=== PATIENT | female | born 1990 | race Caucasian/White ===

== ENCOUNTER 2016-04-15 22:06 | Outpatient (CLI) | payer OTHER ==
[~2016-04-15] VITALS: Ht 152.4 cm; Wt 84.4 kg
[~2016-04-15 22:06] MED LIST: PREN1TAB49
[2016-04-15 22:18] VITALS: BP 129/69; PULSE 101; RESP 18; Ht 152.4 cm; Wt 84.4 kg
[2016-04-15] MEDS ORDERED: FERR256T PO (22:21)
[2016-04-15] MEDS ORDERED: CALC600T5 PO (22:21)
--- NOTE | 2016-04-15 23:10 | PN ---
Date/Time of Note Date/Time of Note DATE: 04/15/16 TIME: 23:08 OB Subjective Subjective Subjective 25 yo P1 @ 39 wks c/o ctx; no vb, no lof, good Fm OB Objective Objective Objective Nml VS Abdomen- gravid, n/t SVE- 1-2/70/-2 FHT- Cat I [place]- irreg ctx Abdomen: WNL Cervical Dilatation: 1cm Effacement: 75% Station: -2 Membranes: Intact Heart Rate: 150's Accelerations: Accelerations Present Decelerations: No Decelerations Varibility: Moderate Intensity: Mild AISLINN FARLEY MD Apr 15, 2016 23:10
--- NOTE | 2016-04-16 00:08 | TRIAGE ---
OB Triage Datetime Report Generated by CPN: 04/16/2016 00:08 Datetime: 04/15/2016 22:40 Vaginal Exam Dilatation (cms): 1.5 Effacement (%): 70 Station: -2 Exam By: DGS RN Vaginal Bleeding: None Cervix, Consistency: Soft Cervix, Position: Posterior Datetime: 04/15/2016 22:35 Labor Evaluation Monitor Mode: Palpation Quality: Mild Datetime: 04/15/2016 22:32 Stage of : OB Triage Datetime: 04/15/2016 22:15 EGA: 38.6 Datetime: 04/15/2016 22:14 Time of Arrival: 04/15/2016 22:00 Arrived By: Ambulatory Arrived From: Home Chief Complaint: LOW ABDOMEN, VAGINAL _ BACK PRESSURE VOMITTED X1 Movement: Decreased Contractions: Occasional Contractions: FEELS ABD PRESSURE PT UNSURE IF UC'S Rupture of Membranes: Denies Vaginal Bleeding: None Vaginal Discharge: Denies Recent Sexual Intercouse: Denies Abdominal Trauma: Not Applicable Patient Complaints: Other Time Provider Notified: 04/15/2016 22:54 Provider Notified: MARTINE Initial Plan: CONTINUOUS EFM Datetime: 04/15/2016 22:13 Assessment Type: Triage Maternal Assessment Level of Consciousness: Fully Conscious DTR's/Clonus: DTRs 2+; No Clonus Headache: Denies Blurred Vision: No Respiratory Effort: Unlabored; Regular Rhythm; Equal Expansion Breath Sounds, Left: Clear and Equal Breath Sounds, Right: Clear and Equal Nausea/Vomiting: Denies RUQ Epigastric Pain: Denies Lower Extremities Edema: None Degree: None Upper Extremities Edema: None Degree: None Facial Edema: None Temperature Route: Oral Fall Risk Assessment History of Falling: (0) No Secondary Diagnosis: (0) No Ambulatory Aid: (0) Bedrest/Nurse Assist IV Therapy: (0) No Gait: (0) Normal/Bedrest/Immobile Mental Status: (0) Oriented to Own Ability Fall Score: 0 Fall Risk Score Definition: No Risk: No action required Pain Assessment Pain Scale: 8 Pain Presence: Constant Pain Type: Pressure Pain Location: Abdomen; Back; Perineum Pain Goal: 3 Datetime: 04/15/2016 22:09 Stage of : OB Triage Assessment Type: Triage
== END 2016-04-15 23:35 | disposition home or self-care (01) ==
LOC: OBT 22:06 → L-D 22:08 → OBT 23:35
PROVIDERS: ATTEND Obstetrics & Gynecology
DX: O62.9 Abnormality of forces of labor, unspecified (principal); Z3A.39 39 weeks gestation of pregnancy
CPT/HCPCS: G0463

== ENCOUNTER 2016-04-16 03:00 | Inpatient (IN) | payer OTHER ==
[~2016-04-16] VITALS: Ht 152.4 cm; Wt 84.4 kg
[~2016-04-16 03:00] MED LIST changes: +CALC600T5 PO; +FERR256T PO
[2016-04-16 03:14] VITALS: Ht 152.4 cm; Wt 84.4 kg
[2016-04-16] MEDS ORDERED: MISOPROSTOL 200 MCG TAB PR PRN (05:00)
[2016-04-16] MEDS ORDERED: LACTATED RINGER'S 1,000 ML IV PRN (05:00)
[2016-04-16] MEDS ORDERED: LACTATED RINGER'S 1,000 ML IV SCH (05:00)
[2016-04-16] MEDS ORDERED: CARBOPROST 250 MCG INJ IM PRN (05:00)
[2016-04-16] MEDS ORDERED: METHYLERGONOVINE 0.2 MG INJ IM PRN (05:00)
[2016-04-16] MEDS ORDERED: AMPICILLIN 2 GM/NS (PMX) 100 ML IV ONE (05:00)
[2016-04-16] MEDS ORDERED: LIDOCAINE 1% (MPF) 30 ML INJ INJ PRN (05:00)
[2016-04-16] MEDS ORDERED: OXYTOCIN 30 UNITS/LR 500 ML IV SCH ×3 (05:00→13:58)
[2016-04-16] MEDS ORDERED: OXYTOCIN 30 UNITS/LR 500 ML IV PRN (05:00)
--- NOTE | 2016-04-16 05:31 | TRIAGE ---
OB Triage Datetime Report Generated by CPN: 04/16/2016 05:30 Datetime: 04/16/2016 05:06 Frequency: 2-6 Monitor Mode: External Duration (sec)2399: 60-90 Quality: Mild Pattern: Normal: <= 5 Contractions in 10 Minutes Resting Tone [place]: Relaxed FHR Baseline Rate: 140 Monitor Mode: External US Variability: Minimal - Undetectable to <=5 bpm Accelerations: 15X15 Decelerations: None Category: Category II Pain Relief Measures: Comfort Measures Datetime: 04/16/2016 05:04 Stage of : OB Triage Datetime: 04/16/2016 04:51 Dilatation (cms): 3.5 Effacement (%): 80 Station: -2 Exam By: DGS RN Membrane Status: Bulging Vaginal Bleeding: Normal Show Cervix, Consistency: Soft Cervix, Position: Posterior Datetime: 04/16/2016 04:37 Monitor Mode: Palpation Quality: Mild Resting Tone [place]: Relaxed Contraction Comments: TOCO APPLIED Monitor Mode: External US Comments: U/S APPLIED Datetime: 04/16/2016 04:04 Comments: off monitor Datetime: 04/16/2016 04:03 Frequency: IRREG Monitor Mode: External Duration (sec)2399: 50-140 Quality: Mild Pattern: Normal: <= 5 Contractions in 10 Minutes Resting Tone [place]: Relaxed FHR Baseline Rate: 150 Monitor Mode: External US Variability: Moderate 6-25 bpm Accelerations: 15X15 Decelerations: None Category: Category I Comments: PERIODS OF MINIMAL VARIABILITY Pain Relief Measures: Comfort Measures Datetime: 04/16/2016 03:41 Monitor Mode: Palpation Quality: Mild Resting Tone [place]: Relaxed Interventions: Oxygen Applied Monitor Mode: External US Datetime: 04/16/2016 03:35 Dilatation (cms): 2.5 Effacement (%): 70 Station: -2 Exam By: DGS RN Vaginal Bleeding: Normal Show Cervix, Consistency: Moderate Cervix, Position: Posterior Datetime: 04/16/2016 03:08 Stage of : OB Triage Assessment Type: Triage Level of Consciousness: Fully Conscious DTR's/Clonus: DTRs 2+; No Clonus Headache: Denies Blurred Vision: No Respiratory Effort: Unlabored; Regular Rhythm; Equal Expansion Breath Sounds, Left: Clear and Equal Breath Sounds, Right: Clear and Equal Nausea/Vomiting: Denies RUQ Epigastric Pain: Denies Lower Extremities Edema: None Degree: None Upper Extremities Edema: None Degree: None Facial Edema: None Temperature Route: Oral History of Falling: (0) No Secondary Diagnosis: (0) No Ambulatory Aid: (0) Bedrest/Nurse Assist IV Therapy: (0) No Gait: (0) Normal/Bedrest/Immobile Mental Status: (0) Oriented to Own Ability Fall Score: 0 Fall Risk Score Definition: No Risk: No action required Pain Scale: 10 Pain Presence: Intermittent Pain Type: Cramping Pain Location: Abdomen Pain Goal: 3 Pain Relief Measures: Comfort Measures Datetime: 04/16/2016 03:05 Stage of : OB Triage Datetime: 04/16/2016 03:03 Stage of : OB Triage Datetime: 04/16/2016 03:02 Time of Arrival: 04/16/2016 03:02 EGA: 39.0 Arrived By: Wheelchair Arrived From: Home Chief Complaint: UC'S SINCE 0000 Movement: Present Contractions: Regular Time Contractions Began: 04/16/2016 00:00 Contractions: Q6-8 MINS Rupture of Membranes: Denies Vaginal Bleeding: None Vaginal Discharge: Denies Recent Sexual Intercouse: Denies Abdominal Trauma: Not Applicable Patient Complaints: Contractions Time Provider Notified: 04/16/2016 03:50 Provider Notified: MARTINE Initial Plan: CONTINUOUS EFM Datetime: 04/15/2016 23:05 Stage of : OB Triage Frequency: OCC Monitor Mode: External Duration (sec)2399: 60-120 Quality: Mild Pattern: Normal: <= 5 Contractions in 10 Minutes Resting Tone [place]: Relaxed FHR Baseline Rate: 150 Monitor Mode: External US Variability: Moderate 6-25 bpm Accelerations: 15X15 Decelerations: None Category: Category I
[2016-04-16] MEDS ORDERED: BUTORPHANOL 2 MG INJ ONE (05:43)
[2016-04-16 05:55] LABS: ADD SCAN DIFF NO
[2016-04-16] MEDS ORDERED: BUTORPHANOL 2 MG INJ IV PRN (06:00)
[2016-04-16 06:03] LABS: BASOPHILS % 0.3 % (0.0-2.0); EOSINOPHILS # 0.1 10^3/ul (0.0-0.5); EOSINOPHILS % 0.9 % (0.0-7.0); HEMATOCRIT 33.8 % (37.0-47.0); HEMOGLOBIN 10.9 g/dl (12.0-16.0); LYMPHOCYTES # 2.8 10^3/ul (0.8-2.9); LYMPHOCYTES % 23.6 % (15.0-51.0); MEAN CORPUSCULAR HEMOGLOBIN 26.7 pg (29.0-33.0); MEAN CORPUSCULAR HGB CONC 32.2 g/dl (32.0-37.0); MEAN CORPUSCULAR VOLUME 82.8 fl (82.0-101.0); MEAN PLATELET VOLUME 11.7 fl (7.4-10.4); MONOCYTE # 0.9 10^3/ul (0.3-0.9); NEUTROPHIL # 7.8 10^3/ul (1.6-7.5); NEUTROPHILS % 66.4 % (39.0-77.0); PLATELET COUNT 208 10^3/UL (140-415); RED BLOOD COUNT 4.08 10^6/ul (4.20-5.40); RED CELL DISTRIBUTION WIDTH 15.2 % (11.5-14.5); WHITE BLOOD COUNT 11.8 10^3/ul (4.8-10.8)
[2016-04-16 06:12] LABS: INR 0.92; PROTIME 12.4 Sec (12.2-14.2)
[2016-04-16 06:13] LABS: PARTIAL THROMBOPLASTIN TIME 27.4 Sec (25.0-35.0)
[2016-04-16 06:23] VITALS: BP 135/78; PULSE 100; RESP 20
[2016-04-16] MEDS ORDERED: FENTAnyl 2MCG/ML-ROPIV 0.2% 100 ML ONE (07:08)
[2016-04-16] MEDS ORDERED: NALOXONE (0.4 MG/ML) INJ IV PRN (08:00)
[2016-04-16] MEDS ORDERED: ONDANSETRON 4 MG INJ IV PRN ×3 (08:00→19:30)
[2016-04-16] MEDS ORDERED: DIPHENHYDRAMINE 50 MG INJ IV PRN (08:00)
[2016-04-16] MEDS ORDERED: FENTAnyl 2MCG/ML-ROPIV 0.2% 100 ML BAG EPI SCH (08:00)
[2016-04-16] MEDS ORDERED: AMPICILLIN 1 GM/NS (PMX) 50 ML IV SCH (09:00)
[2016-04-16 13:54] VITALS: BP 117/66; PULSE 105; RESP 20
[2016-04-16] MEDS ORDERED: DIBUCAINE 1% 30 GM OINT PR PRN ×2 (14:00→19:30)
[2016-04-16] MEDS ORDERED: WITCH HAZEL/GLYCERIN PAD PR PRN ×2 (14:00→19:30)
[2016-04-16] MEDS ORDERED: BENZOCAINE 20% 56 ML SPRAY TOP PRN ×2 (14:00→19:30)
[2016-04-16] MEDS ORDERED: ACETAMINOPHEN 325 MG TAB PO PRN ×2 (14:00→19:30)
[2016-04-16] MEDS ORDERED: OXYCODONE/ASPIRIN (4.88/325) TAB PO PRN ×4 (14:00→19:30)
[2016-04-16] MEDS ORDERED: IBUPROFEN 600 MG TAB PO SCH (14:00)
[2016-04-16] MEDS ORDERED: ACETAMINOPHEN/CODEINE #3 TAB PO PRN ×4 (14:00→19:30)
[2016-04-16] MEDS ORDERED: LANOLIN 7 GM TUBE TOP PRN ×2 (14:00→19:30)
[2016-04-16 16:25] VITALS: BP 117/72; PULSE 97; RESP 19
--- NOTE | 2016-04-16 17:01 | LDN ---
Date/Time of Note Date/Time of Note DATE: 04/16/16 TIME: 16:58 Delivery Summary Normal spontaneous vaginal delivery of a baby girl from BOBBI position shoulders delivered without any difficulties the rest of the baby's body followed/ placenta spontaneous expulsion inspected complete no perineal laceration estimated blood loss 200-250 cc Placenta Delivered: Spontaneously Meconium: none Perineum intact?: Yes Anesthesia type: Epidural Sponge & Needle done & correct: Yes All needle counts correct: Yes Any foreign bodies felt in the: No Problems: Delivery Information Sex Infant Sex: female Apgars 1 Minute: 9 5 Minute: 9 Suctioning Delee suction performed: No Umbilical Cord Umbilical cord with: 3 Vessels Cord Blood was obtained: Yes SANG BOYER MD Apr 16, 2016 17:01
--- NOTE | 2016-04-16 17:07 | HP ---
Date/Time of Note Date/Time of Note DATE: 04/16/16 TIME: 17:02 OB - History Hx of Present Free Text/Dictation 25 years old female 2. Para 1 EDC April 23 admitted to [facility] in active labor admitting pelvic examination cervix 5 cm dilated 100% effaced vertex is -1 station contraction every 3-4 minutes heart rate category 1. Chief Complaint: Labor contractions Estimated Due Date: Apr 23, 2016 : 2 Para: 1 Care: Good Care Ultrasounds: Normal mid trimester US Obstetrical Complications: None Medical Complications: None Past Family/Social History * Past Medical, Surgical, Family and Obstetric Histories reviewed from chart. Rubella: immune RPR/VDRL: Negative GBS Status: Negative HBsAG: Negative OB Admission Exam Vital Signs Vital Signs Vital Signs Date Time Temp Pulse Resp B/P Pulse Ox O2 Delivery O2 Flow Rate FiO2 04/16/16 16:25 98.4 97 19 117/72 Room Air 04/16/16 06:23 98 Physical Exam HEENT: WNL Heart: Rhythm Normal Lungs: Clear, Equal Abdomen: WNL Extremities: Normal Cervical Dilatation: 5cm Effacement: 100% Station: -2 Membranes: Intact Heart Rate: 120's Accelerations: Accelerations Present Decelerations: No Decelerations Varibility: Moderate Contractions on Admission: < 5 Minutes Apart Intensity: Firm Last 72 hours Lab Results CBC & BMP 04/16/16 05:20 SANG BOYER MD Apr 16, 2016 17:07
[2016-04-16] MEDS: OXYTOCIN 30 UNITS/LR 500 ML IV SCH ×2 (19:23→23:23)
[2016-04-16 20:00] VITALS: BP 118/68; PULSE 100; RESP 20
[2016-04-16] MEDS ORDERED: SENNA/DOCUSATE NA (8.6MG/50MG) TAB PO SCH (21:00)
[2016-04-16] MEDS: SENNA/DOCUSATE NA (8.6MG/50MG) TAB PO SCH (21:03)
[2016-04-16 23:45] VITALS: BP 110/56; PULSE 97; RESP 20
[2016-04-16] MEDS: IBUPROFEN 600 MG TAB PO SCH (23:46)
[2016-04-17 03:45] VITALS: BP 103/69; PULSE 96; RESP 20
[2016-04-17] MEDS: IBUPROFEN 600 MG TAB PO SCH ×3 (06:05→17:05)
[2016-04-17 07:30] LABS: ADD SCAN DIFF NO
[2016-04-17 07:35] LABS: BASOPHILS % 0.2 % (0.0-2.0); EOSINOPHILS # 0.2 10^3/ul (0.0-0.5); EOSINOPHILS % 1.5 % (0.0-7.0); HEMATOCRIT 26.9 % (37.0-47.0); HEMOGLOBIN 8.5 g/dl (12.0-16.0); LYMPHOCYTES # 2.6 10^3/ul (0.8-2.9); LYMPHOCYTES % 20.9 % (15.0-51.0); MEAN CORPUSCULAR HEMOGLOBIN 26.6 pg (29.0-33.0); MEAN CORPUSCULAR HGB CONC 31.6 g/dl (32.0-37.0); MEAN CORPUSCULAR VOLUME 84.3 fl (82.0-101.0); MEAN PLATELET VOLUME 11.2 fl (7.4-10.4); MONOCYTE # 0.8 10^3/ul (0.3-0.9); MONOCYTES % 6.5 % (0.0-11.0); NEUTROPHIL # 8.6 10^3/ul (1.6-7.5); NEUTROPHILS % 69.9 % (39.0-77.0); PLATELET COUNT 160 10^3/UL (140-415); RED BLOOD COUNT 3.19 10^6/ul (4.20-5.40); RED CELL DISTRIBUTION WIDTH 15.5 % (11.5-14.5); WHITE BLOOD COUNT 12.3 10^3/ul (4.8-10.8)
[2016-04-17 08:30] VITALS: BP 98/52; PULSE 94; RESP 18
--- NOTE | 2016-04-17 11:00 | PN ---
Date/Time of Note Date/Time of Note DATE: 04/17/16 TIME: 10:59 OB Subjective Subjective Subjective Post normal vaginal delivery day 1 VSs stable, afebrile, abdomen soft, uterus firm, lochia normal, extremity normal , ambulation recommended Laboratory Tests Test 04/17/16 06:40 Basophils # 0.010^3/ul Basophils % 0.2% Eosinophils # 0.210^3/ul Eosinophils % 1.5% Hematocrit 26.9% Hemoglobin 8.5g/dl Lymphocytes # 2.610^3/ul Lymphocytes % 20.9% Mean Corpuscular Hemoglobin 26.6pg Mean Corpuscular Hemoglobin Concent 31.6g/dl Mean Corpuscular Volume 84.3fl Mean Platelet Volume 11.2fl Monocytes # 0.810^3/ul Monocytes % 6.5% Neutrophils # 8.610^3/ul Neutrophils % 69.9% Nucleated Red Blood Cells # 0.010^3/ul Nucleated Red Blood Cells % 0.0/100WBC Platelet Count 93349^3/UL Red Blood Count 3.1910^6/ul Red Cell Distribution Width 15.5% White Blood Count 12.310^3/ul Current Medications Medications (Trade) Dose Ordered Sig/Julio Route PRN Reason Start Time Stop Time Status Last Admin Dose Admin Lactated Ringer's (Lr) 1,000 ml @ 125 mls/hr Q8H IV 04/16/16 05:00 04/16/16 14:02 DC 04/16/16 05:45 Lidocaine 30 ml 30 ml ONCE PRN INJ EPISIOTOMY/TEARING 04/16/16 05:00 04/16/16 14:02 DC Oxytocin/Lactated Ringer's 500 ml @ 125 mls/hr ONCE -MAY REPEAT X1 IV 04/16/16 05:00 04/16/16 14:02 DC 04/16/16 11:39 Oxytocin/Lactated Ringer's 500 ml @ 125 mls/hr ONCE IV 04/16/16 05:00 04/16/16 14:02 DC 04/16/16 13:05 Lactated Ringer's 1,000 ml @ 2,000 mls/hr Q30M PRN IV PRE-EPIDURAL BOLUS 04/16/16 05:00 04/16/16 14:02 DC 04/16/16 08:09 Oxytocin/Lactated Ringer's 500 ml @ 0 mls/hr ONCE PRN IV For Hemorrhage Management 04/16/16 05:00 04/16/16 14:02 DC Methylergonovine Maleate (Methergine) 0.2 mg ONCE PRN IM VAGINAL BLEEDING 04/16/16 05:00 04/16/16 14:02 DC 04/16/16 13:25 Carboprost Tromethamine (Hemabate) 250 mcg ONCE PRN IM VAGINAL BLEEDING 04/16/16 05:00 04/16/16 14:02 DC Misoprostol 1000 mcg 1,000 mcg ONCE PRN WA VAGINAL BLEEDING 04/16/16 05:00 04/16/16 14:02 DC Ampicillin 100 ml @ 100 mls/hr ONCE ONCE IV 04/16/16 05:00 04/16/16 05:35 DC Ampicillin (Ampicillin 1 Gm/ NS (Pmx)) 50 ml @ 100 mls/hr Q4H IV 04/16/16 09:00 04/16/16 09:00 DC Butorphanol Tartrate (Stadol) 2 mg Q2H PRN IV PAIN 04/16/16 06:00 04/16/16 14:02 DC 04/16/16 05:48 Butorphanol Tartrate 2 mg 2 mg STK-MED ONCE .ROUTE 04/16/16 05:43 04/16/16 05:44 DC Fentanyl/ Ropivacaine 100 ml @ ud STK-MED ONCE .ROUTE 04/16/16 07:08 04/16/16 07:09 DC Naloxone HCl (Narcan) 0.1 mg Q2M PRN IV FOR RESP RATE 8 OR LESS 04/16/16 08:00 04/16/16 14:02 DC Diphenhydramine HCl (Benadryl) 25 mg Q6H PRN IV ITCHING 04/16/16 08:00 04/16/16 14:02 DC Ondansetron HCl (Zofran Inj) 4 mg Q6H PRN IV NAUSEA AND/OR VOMITING 04/16/16 08:00 04/16/16 14:02 DC Fentanyl/ Ropivacaine 100 ml 100 ml EPIDURAL INFUSION EPI 04/16/16 08:00 04/16/16 14:02 DC Oxytocin/Lactated Ringer's 500 ml @ 125 mls/hr Q4H IV 04/16/16 13:58 04/16/16 19:27 DC 04/16/16 17:40 Ibuprofen (Motrin) 600 mg Q6 PO 04/16/16 14:00 04/16/16 19:27 DC 04/16/16 17:40 Acetaminophen (Tylenol Tab) 650 mg Q4H PRN PO PAIN LEVEL 1-5 04/16/16 14:00 04/16/16 19:27 DC Acetaminophen/ Codeine Phosphate (Tylenol No.3) 1 tab Q4H PRN PO PAIN LEVEL 1-5 04/16/16 14:00 04/16/16 19:27 DC Acetaminophen/ Codeine Phosphate (Tylenol No.3) 2 tab Q4H PRN PO PAIN LEVEL 6-10 04/16/16 14:00 04/16/16 19:27 DC Oxycodone/Aspirin (Percodan) 1 tab Q3H PRN PO PAIN LEVEL 1-5 04/16/16 14:00 04/16/16 19:27 DC Oxycodone/Aspirin (Percodan) 2 tab Q3H PRN PO PAIN LEVEL 6-10 04/16/16 14:00 04/16/16 19:27 DC Ondansetron HCl (Zofran Inj) 4 mg Q6H PRN IV NAUSEA AND/OR VOMITING 04/16/16 14:00 04/16/16 19:27 DC Senna/Docusate Sodium (Senokot-S) 1 tab BID PO 04/16/16 21:00 04/16/16 21:00 DC Witch Nanci/ Glycerin (Tucks Pads) 1 pad BEDSIDE MEDICATION PRN WA HEMORRHOID/EPISIOTMY PAIN 04/16/16 14:00 04/16/16 19:27 DC Benzocaine (Dermoplast [place]) 1 spray BEDSIDE MEDICATION PRN TOP HEMORRHOID/EPISIOTMY PAIN 04/16/16 14:00 04/16/16 19:27 DC Dibucaine (Nupercainal) 1 applic BEDSIDE MEDICATION PRN WA HEMORRHOID/EPISIOTMY PAIN 04/16/16 14:00 04/16/16 19:27 DC Lanolin (Rqy-Y-Oluwtm) 1 applic BEDSIDE MEDICATION PRN TOP BEDSIDE FOR [place] TO NIPPLES 04/16/16 14:00 04/16/16 19:27 DC Measles/Mumps/ Rubella Vaccine Live 0.5 ml 0.5 ml ONCE ONCE SC* 04/18/16 09:00 04/18/16 09:00 DC Oxytocin/Lactated Ringer's 500 ml @ 125 mls/hr Q4H IV 04/16/16 19:23 04/17/16 03:22 DC Ibuprofen (Motrin) 600 mg Q6 PO 04/17/16 00:00 04/17/16 06:05 Acetaminophen (Tylenol Tab) 650 mg Q4H PRN PO PAIN LEVEL 1-5 04/16/16 19:30 Acetaminophen/ Codeine Phosphate (Tylenol No.3) 1 tab Q4H PRN PO PAIN LEVEL 1-5 04/16/16 19:30 Acetaminophen/ Codeine Phosphate (Tylenol No.3) 2 tab Q4H PRN PO PAIN LEVEL 6-10 04/16/16 19:30 Oxycodone/Aspirin (Percodan) 1 tab Q3H PRN PO PAIN LEVEL 1-5 04/16/16 19:30 Oxycodone/Aspirin (Percodan) 2 tab Q3H PRN PO PAIN LEVEL 6-10 04/16/16 19:30 Ondansetron HCl (Zofran Inj) 4 mg Q6H PRN IV NAUSEA AND/OR VOMITING 04/16/16 19:30 Senna/Docusate Sodium (Senokot-S) 1 tab BID PO 04/16/16 21:00 04/16/16 21:03 Witch Nanci/ Glycerin (Tucks Pads) 1 pad BEDSIDE MEDICATION PRN [place] HEMORRHOID/EPISIOTMY PAIN 04/16/16 19:30 Benzocaine (Dermoplast [place]) 1 spray BEDSIDE MEDICATION PRN TOP HEMORRHOID/EPISIOTMY PAIN 04/16/16 19:30 Dibucaine (Nupercainal) 1 applic BEDSIDE MEDICATION PRN WA HEMORRHOID/EPISIOTMY PAIN 04/16/16 19:30 Lanolin (Pbr-T-Emrrgf) 1 applic BEDSIDE MEDICATION PRN TOP BEDSIDE FOR [place] TO NIPPLES 04/16/16 19:30 Measles/Mumps/ Rubella Vaccine Live (Mmr Ii Vaccine) 0.5 ml ONCE ONCE SC* 04/18/16 09:00 04/18/16 09:01 Influenza Virus Vaccine (Fluzone) 0.5 ml ONCE ONCE IM* 04/18/16 09:00 04/18/16 09:01 SANG BOYER MD Apr 17, 2016 11:00
[2016-04-17] MEDS: SENNA/DOCUSATE NA (8.6MG/50MG) TAB PO SCH ×2 (11:20→21:30)
[2016-04-17 16:00] VITALS: BP 101/66; PULSE 88; RESP 18
[2016-04-17 19:50] VITALS: BP 109/65; PULSE 86; RESP 20
[2016-04-18] MEDS: IBUPROFEN 600 MG TAB PO SCH ×3 (00:10→08:02)
[2016-04-18 04:30] VITALS: BP 117/66; PULSE 89; RESP 18
[2016-04-18 08:00] VITALS: BP 112/59; PULSE 87; RESP 19
[2016-04-18] MEDS: SENNA/DOCUSATE NA (8.6MG/50MG) TAB PO SCH (09:00)
[2016-04-18] MEDS ORDERED: INFLUENZA VIRUS VACCINE 0.5 ML (DISPENSING) IM* ONE (09:00)
[2016-04-18] MEDS ORDERED: MEASLES,MUMPS,RUBELLA VACCINE INJ SC* ONE ×2 (09:00)
--- NOTE | 2016-04-18 09:47 | PD.PPDC ---
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
--- NOTE | 2016-04-18 09:49 | DS ---
Date/Time of Note Date/Time of Note DATE: 04/18/16 TIME: 09:48 Obstetrical Discharge Record Final Diagnosis Final Diagnosis: Term delivered Vaginal Delivery Obstetrical Delivery: Spontaneous Condition on Discharge Physical Assessment Last Vitals: Vital signs his, abdomen soft, uterus for, lochia normal, extremity normal, patient discharged home with instructions recommended to be seen at the clinic in 2 weeks Voiding: Yes Bowel Movement: Yes Breast: Soft, non-tender, Filling Fundus: Firm Calf Tenderness: No Patient Condition: Good SANG BOYER MD Apr 18, 2016 09:49
== END 2016-04-18 12:30 | disposition home or self-care (01) | DRG 775 ==
LOC: OBT 03:00 → L-D 03:00 → OBT 05:05 → PP1 13:42
PROVIDERS: ADMIT Obstetrics & Gynecology; ATTEND Obstetrics & Gynecology
PROC: 10E0XZZ Delivery of Products of Conception, External Approach (ICD-10-PCS; principal; 2016-04-16)
DX: O80 Encounter for full-term uncomplicated delivery (principal); Z37.0 Single live birth; Z3A.38 38 weeks gestation of pregnancy
CPT/HCPCS: 62319; 85025; 85610; 85730; 86592; 86900; 86901; 87340; 90686; A4310; G0463; J2210; J2590; J3010; J7120